=== PATIENT | female | born 1970 | race Caucasian/White ===

== ENCOUNTER 2023-09-14 13:33 | Emergency (ER) | payer OTHER, SELFPAY ==
[2023-09-14 13:37] VITALS: BP 135/95
[2023-09-14 14:03] LABS: % Basophils 0.6 % (0-2); % Eosinophils 0.1 % (0-6); % Immature Granulocytes 0.3 % (0-0.5); % Lymphocytes 14.4 % (20.5-51.1); % Monocytes 4.3 % (1.7-9.3); % Neutrophils 80.3 % (42.2-75.2); Absolute Monocytes 0.3 10^3/uL (0.1-0.6); Absolute Neutrophils 5.8 10^3/uL (1.4-6.5); Hematocrit 43.6 % (37.0-47.0); Hemoglobin 14.6 g/dL (12.0-16.0); Mean Corp Hgb Conc. 33.5 g/dL (33.0-37.0); Mean Corpuscular Hgb 30.3 pg (27.0-31.0); Mean Corpuscular Volume 90.5 fL (81.0-99.0); Mean Platelet Volume 8.9 fL (7.4-10.4); Nucleated Red Blood Cells % 0 %; Platelet Count 259 10^3/uL (130-400); Red Blood Cell Count 4.82 10^6/uL (4.20-5.40); Red Cell Dist. Width 12.9 % (11.5-14.5); White Blood Cell Count 7.2 10^3/uL (4.8-10.8)
[2023-09-14 14:16] LABS: ALT (SGPT) 19 U/L (0-35); AST (SGOT) 27 U/L (14-36); Albumin 4.6 g/dl (3.5-5.0); Alkaline Phosphatase 61 U/L (38-126); Blood Urea Nitrogen 15 mg/dl (7-17); Calcium 9.7 mg/dl (8.4-10.2); Carbon Dioxide 27 mmol/L (22-30); Chloride 106 mmol/L (98-107); Glucose 94 mg/dl (70-99); Potassium 4.1 mmol/L (3.5-5.1); Sodium 138 mmol/L (135-145); Total Protein 7.5 g/dl (6.3-8.2); eGFR > 60.00
[2023-09-14 14:27] LABS: Troponin I < 0.012 ng/ml
[2023-09-14 15:44] VITALS: BP 136/89
[2023-09-14 16:00] VITALS: BP 108/80
--- NOTE | 2023-09-14 16:16 | ED.GENMED ---
History of Present Illness
<BHUMI Arguello - Last Filed: 09/15/23 18:25>
General
Chief Complaint: Heart Rate Problem
Source: patient
Exam Limitations: none
Time Seen by Provider: 09/14/23 16:02
Nursing documentation reviewed up to this point in time: agreed with
Travel History
Have you had any contact with someone who has COVID-19?: No
Do you have any symptoms of coronavirus? Fever > 100 degrees, chills, cough, shortness of breath, sore throat, loss of taste or smell, muscle aches, or headache?: No
History of Present Illness
History of Present Illness:
Patient is a 51-year-old female who presents to the ER for evaluation of irregular heart rate. Patient relates for the past year she has had issues with her heart rate. She reports initially she had it about every 3 months then it was once a month
and for the past several weeks she has had it once a week. Today however her sensation was constant. She describes a sensation that is recovering as an initial adrenaline flushing sensation in her chest and that she checks her pulse and she does
not feel it. She describes feeling almost a pause or skipped beat. She denies any associated chest pain shortness of breath.
She has not been evaluated by PCP or workday consultant for this.
Patient has limited caffeine intake. She denies any [id number] cough cold medications
Past History
<BHUMI Arguello - Last Filed: 09/15/23 18:25>
Past History
ED Past Medical History: None
ED Past Surgical History: None
Social History
Tobacco: Non-smoker
Alcohol: None
Drug: None
Personal:
Living: with family
Review of Systems
<BHUMI Arguello - Last Filed: 09/15/23 18:25>
Review of Systems
Allergies reviewed?: Yes
All Other Systems: ROS reviewed and negative except as documented in HPI and ROS
Constitutional: Reports no symptoms; Denies fever, fatigue or chills
EENT: Reports no symptoms
Respiratory: Reports no symptoms
Cardiac: Reports no symptoms; Denies chest pain, diaphoresis, palpitations or syncope
ABD/GI: Reports no symptoms; Denies nausea or vomiting
: Reports no symptoms
Musculoskeletal: Reports no symptoms
Skin: Reports no symptoms
Neurological: Reports no symptoms
Hematologic/Lymphatic: Reports no symptoms
Psychiatric: Reports no symptoms
Phy Exam
<BHUMI Arguello - Last Filed: 09/15/23 18:25>
General Physical Exam
General Presentation: no apparent distress
General age: appears stated age
General Skin: warm and dry
General Habitus: normal
General Mental: alert
General Hydration: appears well hydrated
Cardiovascular Exam
Cardiovascular Exam: regular rate/rhythm, no murmur and normal peripheral pulses
Pulmonary Exam
Pulmonary Exam: lungs clear and no respiratory distress
Neurological Exam
Neurological Exam: alert and oriented x3
Jenners Coma Scale
Eye Opening: Spontaneous
Verbal Response: Oriented
Motor Response: Obeys Commands
GCS Total Score: 15
Musculoskeletal Exam
Musculoskeletal Exam: full ROM
Skin Exam
Skin Exam: normal color and warm/dry
Psychiatric Exam
Psychiatric Exam: normal mood/affect
<Josse Reeves PA-C - Last Filed: 09/14/23 18:44>
Taylor Coma Scale
GCS Total Score: 15
Course
<BHUMI Arguello - Last Filed: 09/15/23 18:25>
Orders/Labs/Results
Orders:
Orders
09/14/23 13:42
Electrocardiogram (*1) Urgent
Reason for Study: Palpitations
EKG- Treatment ONCE
09/14/23 13:49
CMP [Comprehensive Metabolic Panel] Urgent
Complete Blood Count/With Diff Urgent
TSH Reflex To Free T4 Urgent
Comment: ADD ON
Troponin I Urgent
09/14/23 16:39
Add On- LAB Urgent
Tests Added?: tsh w/ reflexive t4
09/14/23 17:21
Vital Signs- Treatment ONCE
Frequency: Once
Abnormal Lab Results
09/14/23
13:49
Absolute Lymphs (auto) 1.0 L 10^3/uL
(1.2-3.4)
Neutrophils % 80.3 H %
(42.2-75.2)
Lymphocytes % 14.4 L %
(20.5-51.1)
09/14/23 13:49
09/14/23 13:49
Vital Signs
Initial and Last Documented VS:
Initial Vital Signs
Temp Pulse Resp BP Pulse Ox
98.1 F 103 16 135/95 98
09/14/23 13:37 09/14/23 13:37 09/14/23 13:37 09/14/23 13:37 09/14/23 13:37
Last Documented Vital Signs
Temp Pulse Resp BP Pulse Ox
98.1 F 90 15 122/77 96
09/14/23 13:37 09/14/23 18:28 09/14/23 18:28 09/14/23 18:28 09/14/23 18:31
Magazine Journalist consulted with Physician
Magazine Journalist consulted with physician?: Yes
Name of Physician Consulted: Negro
<Josse Reeves PA-C - Last Filed: 09/14/23 18:44>
Orders/Labs/Results
Orders:
Orders
09/14/23 13:42
Electrocardiogram (*1) Urgent
Reason for Study: Palpitations
EKG- Treatment ONCE
09/14/23 13:49
CMP [Comprehensive Metabolic Panel] Urgent
Complete Blood Count/With Diff Urgent
TSH Reflex To Free T4 Urgent
Comment: ADD ON
Troponin I Urgent
09/14/23 16:39
Add On- LAB Urgent
Tests Added?: tsh w/ reflexive t4
09/14/23 17:21
Vital Signs- Treatment ONCE
Frequency: Once
Abnormal Lab Results
09/14/23
13:49
Absolute Lymphs (auto) 1.0 L 10^3/uL
(1.2-3.4)
Neutrophils % 80.3 H %
(42.2-75.2)
Lymphocytes % 14.4 L %
(20.5-51.1)
09/14/23 13:49
09/14/23 13:49
Vital Signs
Initial and Last Documented VS:
Initial Vital Signs
Temp Pulse Resp BP Pulse Ox
98.1 F 103 16 135/95 98
09/14/23 13:37 09/14/23 13:37 09/14/23 13:37 09/14/23 13:37 09/14/23 13:37
Last Documented Vital Signs
Temp Pulse Resp BP Pulse Ox
98.1 F 90 15 122/77 96
09/14/23 13:37 09/14/23 18:28 09/14/23 18:28 09/14/23 18:28 09/14/23 18:31
<BHUMI Arguello - Last Filed: 09/15/23 18:25>
MDM/Problems Addressed
Differential Diagnosis Includes:
Not limited to arrhythmia
MDM/Problems Addressed:
Patient presents no acute distress no associated chest pain with symptoms. She describes this adrenaline like flushing sensation in her chest and then when she checks her pulse she does not feel pulse right away. Here patient has been in normal
sinus rhythm and no acute distress with no palpitations no arrhythmia. Labs are unremarkable will check thyroid however plan for discharge home. Patient will need Holter monitor and cardiology follow up.
<Josse Reeves PA-C - Last Filed: 09/14/23 18:44>
*Critical Care Note
Total Time (30-74mins, 75-104mins- exclusive of procedures): Not Applicable
<Josse Reeves PA-C - Last Filed: 09/14/23 18:44>
Patient Management
Escalation/DeEscalation of care consider admission/obs:
Patient received in signout pending remaining lab work. Labs overall unremarkable. Patient is asymptomatic. There is no abnormal telemetry during patient's ER workup. She was provided with information for outpatient cardiology. Cardiology
office was made aware and will expedite patient's outpatient follow-up. Patient aware of return precautions but otherwise stable for discharge home.
ED Attending Note
<BHUMI Arguello - Last Filed: 09/15/23 18:25>
-
Portions of this chart may have been created with voice recognition software.� Occasional wrong word or��sound alike� substitutions may have occurred due to the inherent limitations of voice recognition software.
Discharge Plan
Departure
Patient Disposition: Home (Routine Discharge)
Date of Disposition: 09/14/23
Time of Disposition: 18:11
Patient with high blood pressure during this ER visit?: Yes
Condition: Fair
Covid-19: Not Applicable
Discharge Problem:
Palpitations
Instructions: Palpitations (DC), BLOOD PRESSURE
Prescriptions:
No Action
No Current Medications
0
Referrals:
Aris Quintero MD [Active] -
NONE,* [Family Provider] -
Activity Restrictions/Additional Instructions:
Stay well-hydrated. Follow-up with cardiology as discussed it is recommended that you have a Holter monitor.
Please call cardiology office [facility] morning for an appointment soon as possible for evaluation. Return if any worsening of symptoms
Interventions
Interventions:
*Risk Screen - Suicide Last Done: 09/14/23 18:32
*General Assessment Last Done: 09/14/23 18:32
*Neglect/Abuse Screening Last Done: 09/14/23 18:32
ED- Fall Risk Assessment Last Done: 09/14/23 18:32
*ED COVID-19 Vaccine History Last Done: 09/14/23 13:37
*Nursing Disposition Last Done: 09/14/23 18:32
ED- Cardiac Assessment Last Done: 09/14/23 15:49
ED- Pulmonary Assessment Last Done: 09/14/23 15:49
Discharge Date and Time
Discharge Date/Time: 09/14/23 18:32
[2023-09-14 17:00] VITALS: BP 106/79
[2023-09-14 17:56] LABS: TSH Reflex To Free T4 2.57 uIU/ml (0.47-4.68)
[2023-09-14 18:00] VITALS: BP 103/70
[2023-09-14 18:28] VITALS: BP 122/77
== END 2023-09-14 18:32 | disposition home or self-care (01) ==
LOC: EMR 13:33
PROVIDERS: Emergency Medicine; EMERGENCY PHYSICIAN Student in an Organized Health Care Education/Training Program
DX: R00.2 Palpitations (principal)
CPT/HCPCS: 99283; 80053; 84443; 84484; 85025; 93005